=== PATIENT | male | born 1965 | race Caucasian/White ===

== ENCOUNTER → 2021-06-22 | Outpatient (CLI) | payer BC ==
[~2021-06-22] MED LIST: IBUP-1027 PO; LIDOCAINE 1% Multi-Dose 20 ML VIAL. INJ ONE; MULT-686 PO; OXYC-325 PO
--- NOTE | 2021-06-22 15:49 | RAD ---
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 COMPARISON: Right knee radiograph 05/31/2021 TECHNIQUE/FINDINGS: The purpose of the procedure and risks including infection, bleeding, allergic reaction, and pain wer e discussed with the patient. Informed consent was obtained. A timeout was performed. After obtaining consent, the patient was placed prone on the fluoroscopy ultrasound table and initial images of the posterior right knee were obtained. This confirmed a large Melchor cyst with mobile debr is. The skin overlying the Melchor cyst in the right posterior knee was marked, sterilized and draped. Sup erficial and deep soft tissues were anesthetized with 1% lidocaine. Utilizing continuous ultrasound guidance, an 18-gauge 1.5 inch needle was advanced into the Melchor's cyst. 80 mL of serous fluid was a spirated. There is a trace amount residual fluid and debris/calcifications remaining at the end of th e procedure. The needle was removed and skin cleansed and covered with a Band-Aid. The patient tolerated the procedure well and was free of immediate complications. IMPRESSION: Technically successful ultrasound-guided right Melchor cyst aspiration. Electronically signed by: Selina Blackmon MD (06/22/2021 3:47 PM) [id number]
== END | disposition home or self-care (01) ==
LOC: US 13:50
PROVIDERS: ATTEND Orthopaedic Surgery
DX: M71.21 Synovial cyst of popliteal space [Baker], right knee (principal); Z79.899 Other long term (current) drug therapy; Z88.0 Allergy status to penicillin; Z72.89 Other problems related to lifestyle
CPT/HCPCS: 20611; C1819; 10005

== ENCOUNTER 2021-07-06 07:57 | Day surgery (SDC) | payer BC ==
[~2021-07-06] VITALS: Ht 175.3 cm; Wt 77.0 kg
[~2021-07-06 07:57] MED LIST changes: +ACETAMINOPHEN 500 MG TABLET PO PRN; +BUPIVACAINE-EPI 0.25%-1:200000 MPF 30 ML VIAL. ONE; +HYDROmorphone 2 MG/ML VIAL IVP PRN; +IV RINGERS,LACTATED 1000ML 1,000 ML IV SCH; -LIDOCAINE 1% Multi-Dose 20 ML VIAL. INJ ONE; +MINERAL OIL for SURGERY 10 ML VIAL. MC ONE; +MORPHINE SULFATE 2 MG/ML INJ. IVP PRN; -OXYC-325 PO; +PROCHLORPERAZINE 10 MG/2 ML VIAL. IVP PRN; +fentaNYL PF VIAL 100 MCG/2 ML VIAL IVP PRN
[2021-07-06 08:38] VITALS: BP 163/90
[2021-07-06] MEDS ORDERED: ONDANSETRON PF 4 MG/2 ML VIAL. ONE (09:08)
[2021-07-06] MEDS ORDERED: LIDOCAINE 2% PF 5 ML VIAL. ONE (09:08)
[2021-07-06] MEDS ORDERED: PROPOFOL 10 MG/ML (20ML) VIAL. IV ONE (09:08)
[2021-07-06] MEDS ORDERED: DEXAMETHASONE SOD PHOS 4 MG/ML VIAL ONE (09:08)
[2021-07-06] MEDS ORDERED: ROCURONIUM 50 MG/5 ML VIAL. ONE (09:09)
[2021-07-06] MEDS ORDERED: fentaNYL PF VIAL 100 MCG/2 ML VIAL ONE ×3 (09:09→11:13)
[2021-07-06] MEDS ORDERED: GLYCOPYRROLATE 1 MG/5 ML VIAL. ONE (09:31)
[2021-07-06] MEDS ORDERED: KETOROLAC 30 MG/ML VIAL. ONE (09:31)
[2021-07-06] MEDS ORDERED: NEOSTIGMINE METHYLSULFATE 5 MG/5 ML SYRINGE. ONE (09:46)
[2021-07-06] MEDS ORDERED: SEVOFLURANE 61 TO 120 MINUTES. IH ONE (10:13)
--- NOTE | 2021-07-06 10:27 | PDOC4 ---
Operative Note Operative Note Date: July 062020 at 1024 Preoperative diagnosis: Right inguinal hernia Postoperative diagnosis: Same Procedure: Robotic assisted laparoscopic right inguinal hernia repair with mesh Surgeon: Ritesh Specimen: None Dictation: Patient is a 56-year-old male with complaints of a painful bulge in his right groin. Procedure of robotic assisted laparoscopic right inguinal hernia repair with mesh was explained to the patient detail risk benefits were also discussed including bleeding infection injury to intra-abdominal contents possible necessitating further open operations alternatives to this procedure also discussed with patient who seemed to understand and gave a verbal written consent to have the procedure performed. Patient was taken to the operating room placed in the supine position general anesthesia was initiated once patient was sleeping intubated he was placed in low lithotomy positioning and his abdomen was prepped and draped usual sterile fashion using ChloraPrep. Area just above his umbilicus was injected with quarter percent Marcaine with epinephrine incision was made 11 blade scalpel and a varies needle was placed within the abdomen creating pneumoperitoneum once this was complete a millimeter da Jacqui port was placed in a 8 mm da Jacqui camera was placed within the abdomen which was inspected no other abnormalities were noted other than a right inguinal hernia. 8 mm ventral port was placed in the right midabdomen and an 8 mm da Jacqui ports placed in the left midabdomen the da Jacqui robot is brought and docked all port sites surgeon went to the robotic console using a grasper and Endo Tommy scissors the peritoneum on the right side was incised and dissected inferiorly creating a flap which reduced the hernia sac and contents. A large Bard 3D max mesh for the right side was then placed over the hernia defect the peritoneum was then closed over the mesh with a running 2 OV lock absorbable suture. The da Jacqui robot was undocked from all port sites the pneumoperitoneum was reduced all port sites were removed the port sites were then closed with 4 subcuticular Monocryl Mastisol Steri-Strips and island dressings were applied. Patient was awakened and extubated operating room taken to recovery in stable condition all sponge instrument needle counts listed as correct estimated blood loss 5 mL. CARLOS WALKER MD Jul 06, 2021 10:27
[2021-07-06] MEDS ORDERED: OXYC-325 PO (10:29)
--- NOTE | 2021-07-06 10:30 | DISCH ---
DISCHARGE INSTRUCTIONS Condition on Discharge Condition on Discharge: Stable Activity After Discharge Activity Instructions for Disc: Avoid exertion Other activity instructions: No lifting more than 20 pounds for 2-week Diet after Discharge Diet after Discharge: Regular Wound Incision Care Other wound/incision instructi: Tracey shower in 24-hour Contacting the [facility] after DC Call your doctor for: If your condition worsens Follow-Up Follow up with: Dr. Walker in 2 CARLOS WALKER MD Jul 06, 2021 10:30
[2021-07-06] MEDS ORDERED: oxyCODONE/APAP 5/325 1 TAB TABLET PO ONE (11:15)
[2021-07-06] MEDS: fentaNYL PF VIAL 100 MCG/2 ML VIAL IVP PRN ×2 (11:16→12:09)
[2021-07-06 12:09] VITALS: BP 123/69
== END 2021-07-06 12:31 | disposition home or self-care (01) ==
LOC: SURG 07:57
PROVIDERS: ATTEND Surgery
DX: K40.90 Unilateral inguinal hernia, without obstruction or gangrene, not specified as recurrent (principal); M19.90 Unspecified osteoarthritis, unspecified site; Z87.891 Personal history of nicotine dependence; Z79.899 Other long term (current) drug therapy; Z98.890 Other specified postprocedural states
CPT/HCPCS: 49650; A4364; A4930; A6219; C1781; J1100; J1885; J1956; J2405; J2704; J2710; J3010; J3490; S2900; A4657